=== PATIENT | female | born 1965 | race Caucasian/White ===

== ENCOUNTER 2018-02-27 13:18 | Emergency (ER) | payer OTHER ==
[~2018-02-27] VITALS: Ht 157.5 cm; Wt 67.2 kg
[2018-02-27 13:33] VITALS: Ht 157.5 cm; Wt 67.2 kg
[2018-02-27 14:30] LABS: BASOPHIL % 0.5 % (0-2); PLATELET COUNT 312 x10^3mcL (130-400); RED CELL DISTRIBUTION WIDTH 12.4 % (11.5-14.5)
[2018-02-27 14:45] LABS: CALCIUM 8.5 mg/dL (8.5-10.1); CARBON DIOXIDE 25.3 mmol/L (21-32); CHLORIDE SERUM 104 mmol/L (98-107); CREATININE SERUM 0.6 mg/dL (0.6-1.0); GFR1 > 60 mL/min; GLUCOSE SERUM 92 mg/dL (74-106); SODIUM SERUM 140 mmol/L (136-145)
[2018-02-27 14:49] LABS: ALBUMIN 3.6 g/dL (3.4-5.0); ALKALINE PHOSPHATASE 87 U/L (46-116); ALT/SGPT 25 U/L (14-59); HDL CHOLESTEROL 60 mg/dL (40-60); TOTAL PROTEIN, SERUM 7.4 g/dL (6.4-8.2)
[2018-02-27 14:51] LABS: CHOLESTEROL 134 mg/dL (<200)
[2018-02-27 14:52] LABS: AST/SGOT 32 U/L (15-37)
[2018-02-27 17:00] VITALS: BP 127/88
== END 2018-02-27 17:01 | disposition home or self-care (01) ==
LOC: ED 13:18
PROVIDERS: Emergency Medicine
DX: S00.31XA Abrasion of nose, initial encounter (principal); S40.212A Abrasion of left shoulder, initial encounter; S80.211A Abrasion, right knee, initial encounter; E78.00 Pure hypercholesterolemia, unspecified; R55 Syncope and collapse; X58.XXXA Exposure to other specified factors, initial encounter; Y93.89 Activity, other specified; Y92.89 Other specified places as the place of occurrence of the external cause; Y99.8 Other external cause status
CPT/HCPCS: 36415; 83880; Q0092